=== PATIENT | male | born 1960 | race Caucasian/White ===

== ENCOUNTER 2023-04-02 05:51 | Emergency (ER) | payer BC, SELFPAY ==
[2023-04-02] VITALS (8 sets, daily range): BP systolic 140–164; BP diastolic 87–115; BMI 28.1
--- NOTE | 2023-04-02 06:20 | ED.GENMED ---
History of Present Illness
General
Chief Complaint: Blood Pressure Problem
Source: patient
Time Seen by Provider: 04/02/23 06:05
Travel History
Have you had any contact with someone who has COVID-19?: No
Do you have any symptoms of coronavirus? Fever > 100 degrees, chills, cough, shortness of breath, sore throat, loss of taste or smell, muscle aches, or headache?: No
History of Present Illness
History of Present Illness:
63-year-old male presents to the emergency room complaining of discomfort in his left arm. Symptoms began yesterday. They have been constant since last evening. Nothing seems to make it better or worse. No associated shortness of breath, nausea
or diaphoresis. Patient has been observing his blood pressure at home and it has been 'high'. With numbers running in the 140s to 150s. There is no exertional component to his discomfort.
Past History
Past History
ED Past Medical History: Other (diverticulitis. Kidney stones states this does not feel like kidney stone.)
ED Past Surgical History: Appendectomy
Social History
Tobacco: Non-smoker
Alcohol: Occasional
Personal:
Living: with family
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
Phy Exam
Physical Exam
Physical Exam:
General: Awake, Alert, Oriented X3. No acute distress.
Vitals: unremarkable
Head: Atraumatic
Eyes: Pupils equal, EOMI
Throat: Airway intact, no exudates
Neck: Trachea midline
Lungs: Clear and equal b/l
Heart: Regular rate, no murmurs
Abd: Soft, Nontender, No pulsatile mass
Neuro: Nonfocal
Skin: Warm, dry, no rash
Extremities: pulses equal b/l, no edema
Course
Orders/Labs/Results
Orders:
Orders
04/02/23 06:09
EKG [Electrocardiogram (*1)] Urgent
Reason for Study: Hypertension, Benign
04/02/23 06:10
EKG- Treatment ONCE
04/02/23 06:16
CR Chest - 2 Views Urgent
Comment:
Reason For Exam: chest pain
04/02/23 06:27
Complete Blood Count/With Diff Urgent
04/02/23 06:50
Basic Metabolic Panel Urgent
Magnesium Urgent
Troponin I Urgent
Abnormal Lab Results
04/02/23 04/02/23
06:27 06:50
Eosinophils % 6.2 H %
(0-6)
Carbon Dioxide 31 H mmol/L
(22-30)
Glucose 104 H mg/dl
(70-99)
04/02/23 06:27
04/02/23 06:50
Vital Signs
Initial and Last Documented VS:
Initial Vital Signs
Temp Pulse Resp BP Pulse Ox
98.2 F 100 14 147/97 98
04/02/23 05:54 04/02/23 05:54 04/02/23 05:54 04/02/23 05:54 04/02/23 05:54
Last Documented Vital Signs
Temp Pulse Resp BP Pulse Ox
98.2 F 80 14 153/114 95
04/02/23 05:54 04/02/23 08:09 04/02/23 08:09 04/02/23 08:09 04/02/23 08:00
MDM/Problems Addressed
Differential Diagnosis Includes:
Angina, controlled hypertension, muscle strain
MDM/Problems Addressed:
Patient's EKG shows. Labs are normal patient has had comfort for several hours continuously therefore 1 troponin is adequate. Chest x-ray shows no acute abnormality status. Patient stable for discharge home. Will start lisinopril was review of
blood pressure during previous visits are consistently in the 1 40-1 50 range.
*Pulse Oximetry
Patient hypoxic: no
*EKG
Interpretation: normal
Heart Rate: 84
Rate: normal
Rhythm: sinus
[place]: normal axis
Interval: normal interval
QRS Pattern: normal QRS
Ischemia: no ischemia
*[facility] Interpretation
Rate: normal
Interpretation: normal
Rhythm: sinus
*Critical Care Note
Total Time (30-74mins, 75-104mins- exclusive of procedures): Not Applicable
ED Attending Note
-
Portions of this chart may have been created with voice recognition software.� Occasional wrong word or��sound alike� substitutions may have occurred due to the inherent limitations of voice recognition software.
Discharge Plan
Departure
Patient Disposition: Home (Routine Discharge)
Date of Disposition: 04/02/23
Time of Disposition: 07:52
Patient with high blood pressure during this ER visit?: Yes
Condition: Good
Discharge Problem:
Hypertension
Instructions: High Blood Pressure (DC)
Prescriptions:
New
lisinopril 10 mg tablet
10 mg PO DAILY Qty: 30 0RF
Interventions
Interventions:
*Risk Screen - Suicide Last Done: 04/02/23 05:54
*General Assessment Last Done: 04/02/23 05:54
*Neglect/Abuse Screening Last Done: 04/02/23 05:54
ED- Fall Risk Assessment Last Done: 04/02/23 05:54
*ED COVID-19 Vaccine History Last Done: 04/02/23 05:54
*Nursing Disposition Last Done: 04/02/23 08:06
ED- Cardiac Assessment Last Done: 04/02/23 06:34
ED- Neurological Assessment Last Done: 04/02/23 06:34
ED- Pulmonary Assessment Last Done: 04/02/23 06:34
Discharge Date and Time
Discharge Date/Time: 04/02/23 08:12
[2023-04-02 06:35] LABS: % Basophils 0.8 % (0-2); % Eosinophils 6.2 % (0-6); % Immature Granulocytes 0.3 % (0-0.5); % Lymphocytes 21.8 % (20.5-51.1); % Monocytes 7.6 % (1.7-9.3); % Neutrophils 63.3 % (42.2-75.2); Absolute Basophils 0.1 10^3/uL (0-0.2); Absolute Eosinophils 0.4 10^3/uL (0-0.7); Absolute Lymphocytes 1.3 10^3/uL (1.2-3.4); Absolute Monocytes 0.5 10^3/uL (0.1-0.6); Absolute Neutrophils 3.9 10^3/uL (1.4-6.5); Hemoglobin 17.2 g/dL (13.0-18.0); Mean Corp Hgb Conc. 35.8 g/dL (33.0-37.0); Mean Corpuscular Hgb 30.6 pg (27.0-31.0); Mean Corpuscular Volume 85.3 fL (80.0-94.0); Mean Platelet Volume 8.7 fL (7.4-10.4); Nucleated Red Blood Cells % 0 % (-); Platelet Count 274 10^3/uL (130-400); Red Blood Cell Count 5.63 10^6/uL (4.70-6.10); Red Cell Dist. Width 11.9 % (11.5-14.5); White Blood Cell Count 6.2 10^3/uL (4.8-10.8)
[2023-04-02 07:15] LABS: Blood Urea Nitrogen 17 mg/dl (9-20); Calcium 9.1 mg/dl (8.4-10.2); Carbon Dioxide 31 mmol/L (22-30); Chloride 104 mmol/L (98-107); Glucose 104 mg/dl (70-99); Potassium 4.3 mmol/L (3.5-5.1); Sodium 137 mmol/L (135-145); eGFR > 60.00
[2023-04-02 07:26] LABS: Troponin I < 0.012 ng/ml
== END 2023-04-02 08:12 | disposition home or self-care (01) ==
LOC: EMR 05:51
PROVIDERS: EMERGENCY PHYSICIAN Emergency Medicine; FAMILY PHYSICIAN Family Medicine
DX: I10 Essential (primary) hypertension (principal)
CPT/HCPCS: 99285; 71046; 80048; 83735; 84484; 85025; 93005